=== PATIENT | male | born 1975 | race Caucasian/White ===

== ENCOUNTER → 2019-02-22 15:12 | Outpatient (CLI) | payer MEDICAID, SELFPAY ==
[2019-02-22 17:36] LABS: Absolute Lymphocyte Count 1.66 X10^3/ul (0.83-4.51); Absolute Neutrophil Count 4.2 X10^3/uL (2.0-7.7); Basophil# 0.02 X10^3/uL; Basophil% 0.3 % (0-1); Eosinophil# 0.19 X10^3/uL; Eosinophils% 2.9 % (0-5); Hematocrit 44.1 % (40-54); Hemoglobin 14.5 g/dl (13.0-16.5); Lymphocyte # 1.66 X10^3/ul (4.0); Lymphocyte % 25.5 % (19-41); Mean Corp Hgb Conc 32.9 g/gl (32-36); Mean Corpuscular Hgb 27.3 pg (27.0-32.0); Mean Corpuscular Volume 82.9 fL (80-94); Mean Platelet Vol. 9.5 fl (6.2-12.0); Monocyte# 0.45 X10^3/uL; Monocyte% 6.9 % (0-10); Neutrophil # 4.19 X10^3/uL (2.7-7.7); Neutrophil % 64.2 % (47-70); Platelet Count 238 K/mm3 (150-450); RBC Distribution Width CV 13.7 % (11.6-14.6); RBC Distribution Width SD 41.1 fl (35.1-43.9); Red Blood Count 5.32 M/mm3 (4.6-6.2); White Blood Count 6.5 K/mm3 (4.4-11.0)
[2019-02-22 17:54] LABS: ALB/GLOB Ratio 1.1 RATIO (0.9-2.4); AST(SGOT) 22 U/L (15-37); Alanine Aminotransfer ALT/SGPT 39 U/L (16-61); Albumin, Serum 3.8 g/dL (3.2-5.0); Alkaline Phosphatase 207 U/L (45-117); Anion Gap 6 (5-15); BUN 16 mg/dL (7-18); BUN/Creat Ratio 14.8 RATIO (10-20); Calcium,Total 8.8 mg/dL (8.5-10.1); Chloride 102 mmol/L (98-107); Cholesterol 208 mg/dL (200); Creatinine, Serum 1.08 mg/dL (0.70-1.30); EST Glomerular Filtration Rate 79 mL/min (>60); Est Glom Filt Rate - Afr Amer 96 mL/min (>60); Globulin 3.5 g/dL (2.2-4.2); Glucose 85 mg/dL (74-106); High Density Lipoprotein 43 mg/dL; Potassium 4.7 mmol/L (3.5-5.1); Protein, Total 7.3 g/dL (6.4-8.2); Sodium Level 137 mmol/L (136-145)
[2019-02-22 17:58] LABS: POSITIVE COUNT NO; POSITIVE DIFFERENTIAL NO; POSITIVE MORPHOLOGY NO
[2019-02-22 18:21] LABS: Microalbumin,Random Urine 5.9 mg/L (NO RANGE EST.); Microalbumin:Creatinine Ratio 4.6 mg/g CRE (<30 mg/g CRE)
== END ==
PROVIDERS: Family Provider Family Medicine; PCP Family Medicine; Referring Provider Family Medicine; Visit Provider Family Medicine
DX: I10 Essential (primary) hypertension (principal); G47.30 Sleep apnea, unspecified
CPT/HCPCS: 36415; 80053; 82043; 82465; 82570; 83718; 85025

== ENCOUNTER → 2019-03-16 14:04 | Outpatient (CLI) | payer MEDICAID, SELFPAY ==
[2019-03-16 15:39] LABS: Vitamin D,25 Hydroxy 25.3 ng/mL (29.95-100.01)
[2019-03-16 15:40] LABS: PTHIN 75.4 pg/mL (18.4-80.1)
== END ==
PROVIDERS: Family Provider Family Medicine; PCP Family Medicine; Visit Provider Family Medicine
DX: E83.39 Other disorders of phosphorus metabolism (principal)
CPT/HCPCS: 36415; 82306; 83970

== ENCOUNTER → 2020-08-11 08:51 | Outpatient (CLI) | payer MEDICAID, SELFPAY ==
[2020-08-11 10:34] LABS: Hemoglobin A1c 5.4 % (3.8-5.6)
[2020-08-11 10:43] LABS: Microalbumin,Random Urine 6.5 mg/L (NO RANGE EST.); Microalbumin:Creatinine Ratio 4.1 mg/g CRE (<30 mg/g CRE)
[2020-08-11 10:46] LABS: ALB/GLOB Ratio 0.9 RATIO (0.9-2.4); AST(SGOT) 28 U/L (15-37); Alanine Aminotransfer ALT/SGPT 64 U/L (16-61); Albumin, Serum 3.7 g/dL (3.2-5.0); Alkaline Phosphatase 244 U/L (45-117); Anion Gap 5 (5-15); BUN 16 mg/dL (7-18); BUN/Creat Ratio 15.4 RATIO (10-20); Calcium,Total 9.2 mg/dL (8.5-10.1); Chloride 105 mmol/L (98-107); Creatinine, Serum 1.04 mg/dL (0.70-1.30); EST Glomerular Filtration Rate 82 mL/min (>60); Est Glom Filt Rate - Afr Amer 99 mL/min (>60); Globulin 4.2 g/dL (2.2-4.2); Glucose 111 mg/dL (74-106); Potassium 4.5 mmol/L (3.5-5.1); Protein, Total 7.9 g/dL (6.4-8.2); Sodium Level 137 mmol/L (136-145); Thyroid Stim Hormone (TSH) 1.93 uIU/mL (0.358-3.74)
[2020-08-14 09:11] LABS: GGTP 186 U/L (15-85)
[2020-08-14 12:58] LABS: ANTINUCLEAR ANTIBODIES DIRECT Negative (Negative)
== END ==
PROVIDERS: PCP Family Medicine; Referring Provider Family Medicine; Visit Provider Family Medicine
DX: M79.10 Myalgia, unspecified site (principal); I10 Essential (primary) hypertension
CPT/HCPCS: 36415; 80053; 82043; 82570; 82977; 83036; 84443; 86038; 86140

== ENCOUNTER → 2020-11-23 08:33 | Outpatient (CLI) | payer MEDICAID, SELFPAY ==
--- NOTE | 2020-11-23 08:40 | RAD_ITS ---
STUDY: X-RAY - LEFT KNEE REASON FOR EXAM: Male, 45 years old. INFLAMMATORY POLYARTHROPATHY TECHNIQUE: 4 view(s) of the knee. COMPARISON: None. FINDINGS: Normal visualized distal femur. Normal visualized proximal tibia and fibula. Normal proximal tibiofibular articulation. There is moderate degenerative arthrosis of the medial femorotibial compartment with moderate joint space narrowing. There is moderate degenerative arthrosis of the lateral femorotibial compartment with moderate joint space narrowing. There is moderate degenerative arthrosis of the patellofemoral articulation. The soft tissue structures are unremarkable. RAD/Knee 4 or More Views IMPRESSION: Degenerative arthrosis. Electronically Signed: Jarett Castaneda MD at 15:21 EDT , Service support ,
--- NOTE | 2020-11-23 08:40 | RAD_ITS ---
STUDY: X-RAY - RIGHT KNEE REASON FOR EXAM: Male, 45 years old. INFLAMMATORY POLYARTHROPATHY TECHNIQUE: 4 view(s) of the knee. COMPARISON: None. FINDINGS: Normal visualized distal femur. Normal visualized proximal tibia and fibula. Normal proximal tibiofibular articulation. There is mild degenerative arthrosis of the medial femorotibial compartment. Normal lateral femorotibial compartment. There is mild degenerative arthrosis of the patellofemoral articulation. The soft tissue structures are unremarkable. RAD/Knee 4 or More Views IMPRESSION: Degenerative arthrosis. The arthritic changes are more progressed in the left knee than the right Electronically Signed: Jarett Castaneda MD at 15:22 EDT , Service support ,
[2020-11-23 08:51] LABS: Lyme Ab Screen Interpretation REF LAB
[2020-11-23 10:21] LABS: Erythrocyte Sedimentation Rate 23 mm/hr (0-20)
[2020-11-23 10:23] LABS: Absolute Lymphocyte Count 1.45 X10^3/uL (0.83-4.51); Absolute Neutrophil Count 3.7 X10^3/uL (2.0-7.7); Basophil# 0.03 X10^3/uL; Basophil% 0.5 % (0-1); Eosinophil# 0.19 X10^3/uL; Eosinophils% 3.3 % (0-5); Hematocrit 44.6 % (40-54); Hemoglobin 14.1 g/dL (13.0-16.5); Lymphocyte # 1.45 X10^3/ul (4.0); Lymphocyte % 25.3 % (19-41); Mean Corp Hgb Conc 31.6 g/dL (32-36); Mean Corpuscular Hgb 27.4 pg (27.0-32.0); Mean Corpuscular Volume 86.8 fL (80-94); Mean Platelet Vol. 9.1 fl (6.2-12.0); Monocyte# 0.32 X10^3/uL; Monocyte% 5.6 % (0-10); NRBC Flagged by Analyzer 0 % (0-5); Neutrophil # 3.72 X10^3/uL (2.7-7.7); Platelet Count 238 K/mm3 (150-450); RBC Distribution Width CV 13.6 % (11.6-14.6); RBC Distribution Width SD 43.4 fl (35.1-43.9); Red Blood Count 5.14 M/mm3 (4.6-6.2); White Blood Count 5.7 K/mm3 (4.4-11.0)
[2020-11-23 11:15] LABS: CRP 7.16 mg/L (0.0-3.0); Rheumatoid Factor < 10.0 IU/mL (<15); T4 Free Direct 0.87 ng/dL (0.76-1.46); Thyroid Stim Hormone (TSH) 2.25 uIU/mL (0.358-3.74)
[2020-11-24 15:43] LABS: ANTINUCLEAR ANTIBODIES DIRECT Negative (Negative)
[2020-11-24 17:07] LABS: Lyme Scn Total Ab w/Rflx <0.91 ISR (0.00-0.90)
== END ==
PROVIDERS: PCP Family Medicine; Referring Provider Family Medicine; Visit Provider Family Medicine
DX: M06.4 Inflammatory polyarthropathy (principal)
CPT/HCPCS: 36415; 73564; 84439; 84443; 85025; 85652; 86038; 86140; 86431; 86618

== ENCOUNTER → 2021-01-15 11:16 | Outpatient (CLI) | payer MEDICAID, SELFPAY ==
[2021-01-15 12:28] LABS: Erythrocyte Sedimentation Rate 40 mm/hr (0-20)
[2021-01-15 12:30] LABS: Absolute Lymphocyte Count 1.17 X10^3/uL (0.83-4.51); Absolute Neutrophil Count 3.6 X10^3/uL (2.0-7.7); Basophil# 0.03 X10^3/uL; Basophil% 0.6 % (0-1); Eosinophil# 0.15 X10^3/uL; Eosinophils% 2.8 % (0-5); Hematocrit 45.1 % (40-54); Hemoglobin 14.6 g/dL (13.0-16.5); Lymphocyte # 1.17 X10^3/ul (0.83-4.51); Lymphocyte % 21.7 % (19-41); Mean Corp Hgb Conc 32.4 g/dL (32-36); Mean Corpuscular Hgb 27.9 pg (27.0-32.0); Mean Corpuscular Volume 86.2 fL (80-94); Mean Platelet Vol. 8.9 fl (6.2-12.0); Monocyte# 0.45 X10^3/uL; Monocyte% 8.4 % (0-10); NRBC Flagged by Analyzer 0 % (0-5); Neutrophil # 3.56 X10^3/uL (2.7-7.7); Neutrophil % 66.1 % (47-70); Platelet Count 226 K/mm3 (150-450); RBC Distribution Width CV 13.5 % (11.6-14.6); RBC Distribution Width SD 42.5 fl (35.1-43.9); Red Blood Count 5.23 M/mm3 (4.6-6.2); White Blood Count 5.4 K/mm3 (4.4-11.0)
== END ==
PROVIDERS: Family Medicine; PCP Family Medicine; Referring Provider Family Medicine; Visit Provider Family Medicine
DX: M06.4 Inflammatory polyarthropathy (principal)
CPT/HCPCS: 36415; 85025; 85652; 86141

== ENCOUNTER 2021-01-31 18:30 | Outpatient (RCR) | payer MEDICAID, SELFPAY ==
--- NOTE | 2021-01-22 16:43 | HP.PTEVAL_ITS ---
Patient's Visit Information DERIK BOLIVAR is a 45 year old M referred to Physical Therapy by Dr. Ashanti Lozada MD with a diagnosis of Left Knee Pain. Date of Evaluation: 01/22/21 Physical Therapist: Maricel Payton DPT - Visit Plan Frequency: 2x /Week Duration: 4 Weeks Plan: OA of the Left Knee- Focus on LE and core strength/stabilization- US as modality of choice. HEP Given IE: SLR, hamstring stretch, Bridge, SLS - Subjective Patient reports that his left knee has been bothering him since August- Insidious onset. In 2007 he fell out of a truck- when he fell out he hyper extended both knees- Left>Right. 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 So it has been worse since he started. The pain is in the front and radiates to both medial and lateral joint line. Does have radiating pain into the hamstring area. He does have N/T in the foot depending on his positioning. This is not new for him. Describes the pain as dull and achy as well as sharp/shooting. Agg: climbing, standing on it to long, twisting Worst: 10/10 Best: 0/10 Eases: rest Sleep: not disturbed. The knee has been better for the last few months but still bothers him. Back problems- stiffness- goes to see [facility] who does adjustments- massage therapy. PMHx: none Meds: GERD medication PRN - Objective Posture: FH, RS- can correct but is unable to maintain. Gait: toes turned out to the side- good brenton. HR/TR: able with UE A. SLS: 3 sec then LOB and required to put other LE on the ground. Sit to Stand: able without UE A. Stairs: asc with no HR- descent no HR recip with poor eccentric control. ROM: 0-120 degrees with soft tissue limitation. Strength: Ankle: 5/5 Knee: 5/5, Hip: flexion: 4+/5, Abd: 4+/5 IR/ER: 4-/5, Extn: 4/5. Core: fair. Flex: HS: severe, Gastroc: severe - Goals Goal 1:: Patient will be I with HEP and progression Goal Time Frame: 4-6 Weeks Goal 2:: Patient will asc/desc 8 stairs recip with good control and no pain Goal Time Frame: 4-6 Weeks Goal 3:: Patient will maintain proper posture t/o tx session to demo increased core s/s. Goal Time Frame: 4-6 Weeks Goal 4:: Patient will report no pain for 1 week Goal Time Frame: 4-6 Weeks - Rehabilitation Potential Physical Therapy Diagnosis: Patient presents with hypomobility- he has decreased strength, flex and muscular endurance leading to increased pain with ADL's and work related tasks. Rehabilitation Potential: Fair - Anticipated Interventions Patient/Client Instruction: Educate patient on: Benefits of Fitness Program Thank you for the opportunity to evaluate your patient. For Medicare and Medicare HMO plans, please review the plan of care and approve it. It will need to be FAXED BACK to us at [phone] for Medicare purposes. For Medicare only, by signing this I certify the plan of care. Please let me know if there are questions or concerns regarding this plan of care. Physician Signature: Date:
--- NOTE | 2021-07-09 07:13 | HP.PT.NRP ---
DERIK ALFORDYAMILKA was seen in my office for initial evaluation on 01/22/21. The following Plan of Care was established for this patient: Initial Frequency: 2x /Week Initial Duration: 4 Weeks Patient/Client Instruction: Educate patient on: Benefits of Fitness Program This patient was last seen in our office . Pertinent comments regarding their Physical therapy will appear below: Patient has not attended PT in over 4 weeks and is appropriate for discharge- return to MD for further evaluation as needed. At this point I will be discontinuing this patient from physical therapy. I would be happy to see this patient again in the future if found appropriate by the physician. Thank you! Maricel Payotn DPT Balance/Gait/Functional tests - Balance/Special Test Scores Lower Extremity Functional Score: 24
== END 2021-01-31 19:00 | disposition home or self-care (01) ==
LOC: PT 18:30
PROVIDERS: PCP Family Medicine; Referring Provider Family Medicine; Visit Provider Family Medicine
DX: M25.562 Pain in left knee (principal)
CPT/HCPCS: 97035; 97110; 97161

== ENCOUNTER → 2021-06-05 16:56 | Outpatient (CLI) | payer MEDICAID, SELFPAY ==
[2021-06-05 17:38] LABS: Absolute Lymphocyte Count 1.69 X10^3/uL (0.83-4.51); Absolute Neutrophil Count 5.1 X10^3/uL (2.0-7.7); Basophil# 0.02 X10^3/uL; Basophil% 0.3 % (0-1); Eosinophil# 0.25 X10^3/uL; Eosinophils% 3.3 % (0-5); Hematocrit 43.7 % (40-54); Hemoglobin 14.1 g/dL (13.0-16.5); Lymphocyte # 1.69 X10^3/ul (0.83-4.51); Lymphocyte % 22.4 % (19-41); Mean Corp Hgb Conc 32.3 g/dL (32-36); Mean Corpuscular Hgb 27.8 pg (27.0-32.0); Monocyte# 0.44 X10^3/uL; Monocyte% 5.8 % (0-10); NRBC Flagged by Analyzer 0 % (0-5); Neutrophil # 5.13 X10^3/uL (2.7-7.7); Neutrophil % 67.9 % (47-70); Platelet Count 223 K/mm3 (150-450); RBC Distribution Width CV 13.1 % (11.6-14.6); RBC Distribution Width SD 40.7 fl (35.1-43.9); Red Blood Count 5.08 M/mm3 (4.6-6.2); White Blood Count 7.6 K/mm3 (4.4-11.0)
[2021-06-05 17:54] LABS: Hemoglobin A1c 5.4 % (3.8-5.6)
[2021-06-05 18:05] LABS: ALB/GLOB Ratio 0.9 RATIO (0.9-2.4); AST(SGOT) 26 U/L (15-37); Alanine Aminotransfer ALT/SGPT 69 U/L (16-61); Albumin, Serum 3.5 g/dL (3.2-5.0); Alkaline Phosphatase 222 U/L (45-117); Anion Gap 8 (5-15); BUN 19 mg/dL (7-18); BUN/Creat Ratio 19.3 RATIO (10-20); Calcium,Total 8.8 mg/dL (8.5-10.1); Chloride 102 mmol/L (98-107); Creatinine, Serum 0.98 mg/dL (0.70-1.30); EST Glomerular Filtration Rate 87 mL/min (>60); Est Glom Filt Rate - Afr Amer 106 mL/min (>60); Ferritin 27 ng/mL (26-388); Globulin 4.1 g/dL (2.2-4.2); Glucose 90 mg/dL (74-106); Potassium 4.5 mmol/L (3.5-5.1); Protein, Total 7.6 g/dL (6.4-8.2); Sodium Level 138 mmol/L (136-145); Thyroid Stim Hormone (TSH) 2.05 uIU/mL (0.358-3.74)
[2021-06-13 00:07] LABS: Lyme IgG P18 Ab Absent (.); Lyme IgG P23 Ab Absent (.); Lyme IgG P28 Ab Absent (.); Lyme IgG P30 Ab Absent (.); Lyme IgG P39 Ab Absent (.); Lyme IgG P41 Ab Absent (.); Lyme IgG P45 Ab Absent (.); Lyme IgG P58 Ab Absent (.); Lyme IgG P66 Ab Absent (.); Lyme IgG P93 Ab Absent (.); Lyme IgM P23 Ab Absent (.); Lyme IgM P39 Ab Absent (.); Lyme IgM P41 Ab Absent (.)
[2021-06-13 14:28] LABS: CCP IgG Antibodies 7 units (0-19); Lyme IgG WB Interpretation Negative (.); Lyme IgM WB Interpretation Negative (.)
== END ==
PROVIDERS: PCP Family Medicine; Referring Provider Family Medicine; Visit Provider Family Medicine
DX: M30.0 Polyarteritis nodosa (principal); E66.01 Morbid (severe) obesity due to excess calories; R19.7 Diarrhea, unspecified; Z68.43 Body mass index [BMI] 50.0-59.9, adult
CPT/HCPCS: 36415; 80053; 82728; 83036; 84443; 85025; 86200; 86617

== ENCOUNTER → 2021-06-06 06:13 | Outpatient (CLI) | payer MEDICAID, SELFPAY ==
[2021-06-08 13:38] LABS: Calprotectin, Stool 21 ug/g (0-120)
== END ==
PROVIDERS: PCP Family Medicine; Referring Provider Family Medicine; Visit Provider Family Medicine
DX: R19.7 Diarrhea, unspecified (principal); M30.0 Polyarteritis nodosa; E66.01 Morbid (severe) obesity due to excess calories; Z68.43 Body mass index [BMI] 50.0-59.9, adult
CPT/HCPCS: 83630; 83993; 87506

== ENCOUNTER → 2021-06-28 14:56 | Outpatient (CLI) | payer MEDICAID, SELFPAY ==
--- NOTE | 2021-06-28 14:58 | US_ITS ---
STUDY: ABDOMINAL ULTRASOUND - RIGHT UPPER QUADRANT REASON FOR VISIT: Male, 45 years old Hepatitis TECHNIQUE: Ultrasound evaluation of the right upper quadrant was performed with real-time and static maynard-scale imaging. TECHNICAL QUALITY: Adequate. COMPARISON: None. FINDINGS: Liver: The liver is enlarged and measures 21.8 cm. There is increased echogenicity consistent with fatty infiltration. The bile ducts are within normal limits. There is hepatic color flow. The direction of portal flow is hepatopetal. There is no demonstrated mass lesion. Gallbladder: Normal distended gallbladder. The gallbladder wall measures 3 mm. There is a negative sonographic Urbina''s sign. There is no pericholecystic fluid. There are no gallstones. Common Bile Duct (C.B.D.): The common bile duct measures 2 mm. Pancreas: Normal size of the head, body of the pancreas. The tail portion is obscured due to overlying bowel gas. There is normal echogenicity of the pancreas. There is no demonstrated pancreatic mass or cyst. Right Kidney: Normal size of the right kidney. The right kidney measures 11.1 cm x 5.6 cm x 4.1 cm. Normal renal cortex. The right cortex measures 1.1 cm. There is no demonstrated renal mass or cyst. There is no right hydronephrosis. US/Abdomen Limited IMPRESSION: Hepatomegaly. Diffuse fatty infiltration of the liver. Electronically Signed: Christopher Montiel MD at 9:35 EDT , Service support ,
== END ==
PROVIDERS: PCP Family Medicine; Referring Provider Internal Medicine Gastroenterology; Visit Provider Internal Medicine Gastroenterology
DX: K75.9 Inflammatory liver disease, unspecified (principal)
CPT/HCPCS: 76705

== ENCOUNTER 2021-07-03 11:29 | Day surgery (SDC) | payer MEDICAID, SELFPAY ==
[2021-07-02 13:46] LABS: Platelet Count 230 K/mm3 (150-450)
[2021-07-02 14:09] LABS: International Normalized Ratio 1.1; Prothrombin Time (Protime)PT. 13.8 SECONDS (11.7-14.9)
[2021-07-02 14:10] LABS: Partial Thromboplast Time 29.7 Seconds (24.1-36.2)
[2021-07-03 11:52] VITALS: BP 137/88; PULSE 83; RESP 18; TEMP 36.1; O2SAT 100; BMI 50.7
[2021-07-03] MEDS: Lactated Ringers 1,000 ML 100 ML IV (12:03)
--- NOTE | 2021-07-03 12:30 | EGD_PTH ---
PATIENT: DERIK BOLIVAR LOC: [facility] U#:[id number] AGE/SX: 45/M ROOM: RE07/03/[address]: Dr. Felipe Hayes DO : 1975 BED: DIS: 07/03/2021 SPEC #: [id number] RECD: 07/03/21 16:02 STATUS: NIKKI BEBE #: [id number] EVER: 07/03/21 12:[address]: Felipe Hayes DEPT: SURGICAL PATHOLOGY RECD BY: Evelina Kamara ENTERED: 07/04/21 10:31 SP TYPE: EGD BIOPSY DONOVAN DR: Dr. Luther Lamas MD Tissues: A - Esophagus, NOS B - Ileum, NOS C - COLON BIOPSY D - Transverse colon E - Sigmoid colon biopsy Procedures: Special Stain Group II Surgery Specimen Level IV Alcian Blue/PAS (control) HEADER OPERATION: Colonoscopy, EGD ([facility] [place]) PRE-OP DIAGNOSIS: Hepatitis, lower GI bleeding, GERD TISSUE SUBMITTED: A ? Distal esophagus biopsy, B ? Terminal ileum biopsy, C ? Hepatic flexure biopsy, D ? Transverse colon polyp biopsy, E ? Sigmoid colon polyp MICROSCOPIC DIAGNOSIS A. Distal esophagus, biopsy: Gastroesophageal junctional mucosa with mild chronic inflammation. No evidence of goblet cell metaplasia. See comment. B. Terminal ileum, biopsy: No pathologic change. C. Colon at hepatic flexure, biopsy: Fragments of colonic mucosa with no pathologic change. D. Transverse colon polyp, biopsy: Tubular adenoma. E. Sigmoid colon polyp, biopsy: Fragments of tubular adenoma. AM:torsten 07/05/2021 COMMENT A. Alcian blue/PAS stain with matched control supports the above diagnosis. Case has been reviewed in consultation with Dr. Chacon who concurs with the above diagnosis. IDC:SJ MICROSCOPIC DESCRIPTION Slides are reviewed. GROSS DESCRIPTION A - Received in fixative is one container labeled with the patient's name and designated distal esophagus. The specimen consists of multiple irregular fragments of light carbajal soft tissue that in aggregate measure 1.2 x 0.4 x 0.1 cm. The specimen is totally submitted in one cassette. B - Received in fixative is one container labeled with the patient's name and designated terminal ileum biopsy. The specimen consists of two irregular fragments of light carbajal soft tissue that in aggregate measure 0.4 x 0.4 x 0.1 cm. The specimen is totally submitted in one cassette. C - Received in fixative is one container labeled with the patient's name and designated hepatic flexure biopsy. The specimen consists of one irregular fragment of light carbajal soft tissue that measures 0.4 x 0.3 x 0.1 cm. The specimen is totally submitted in one cassette. D - Received in fixative is one container labeled with the patient's name and designated transverse colon polyp biopsy. The specimen consists of one irregular fragment of light carbajal soft tissue that measures 0.3 x 0.3 x 0.1 cm. The specimen is totally submitted in one cassette. E - Received in fixative is one container labeled with the patient's name and designated sigmoid colon polyp. The specimen consists of a carbajal-pink polyp measuring 1 x 1 x 0.4 cm. The entire specimen is submitted in one cassette. / NENO:torsten 07/04/21 TC:5 CPT: 42364 x5, 57973
--- NOTE | 2021-07-03 12:54 | PCM.HP.BLA ---
History and Physical Date of Admission: 07/03/21 HPI HPI Details: DERIK BOLIVAR, is a 45 M who presents to the office today for the evaluation of bloody stool. He says he has been having bloody stools on and off for several years. Recently he has been having problems with muscle aches and weakness. He has no chest pain or shortness of breath. He has no family history or personal history of any rheumatologic disease. He has no family history of any muscle disease. He had a biochemical work-up by his primary that had shown an elevated ESR and CRP. Also he had an elevated alkaline phosphatase and ALT. He has no previous history of liver disease and does not drink any alcohol. He has never had any blood transfusions. He denies any right upper quadrant pain, nausea or indigestion. He does have a history of gastroesophageal reflux disease that requires him to take omeprazole on occasion. He is never been hospitalized except for a ventral hernia repair. He still has his gallbladder. 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 Denies constipation or diarrhea, but he has had bloody stools; most recently this week. He has been having bloody stools for the last 3 years years and he goes through periods where he has them regularly and other periods where he has none. Previously has been told they were related to hemorrhoids and sitting too much. He does have a family history of Crohn's Disease. Denies history of colonoscopy or EGD. ROS Const Constitutional: Positive for headache(s) Eyes Eyes: Positive for blurry vision ENT ENT: Positive for headache(s) Gastro GI: Positive for heartburn and Blood in stool Musc Musculoskeletal: Positive for joint pain, back pain, joint swelling, muscle cramps, muscle weakness and stiffness Neuro Neurology: Positive for headache(s) Exam Const General: cooperative and comfortable Nutritional Appearance: average body habitus and well nourished [facility] Head: normal to inspection Ears: hearing grossly normal bilaterally Nose: external nose normal Face and sinus: normal facial exam Mouth: oral mucosae normal Throat: posterior oropharynx normal Eyes General: appearance normal, both eyes and all related structures Neck Neck: normal visual inspection Chest Chest palpation & inspection: normal inspection of the chest and normal palpation of entire chest wall Resp Effort & Inspection: normal respiratory effort Auscultation: Bilateral: Clear to Auscultation Cardio Palpation: normal PMI Rate: regular rate Rhythm: regular rhythm GI Inspection: normal to inspection Auscultation: normal bowel sounds Percussion: normal to percussion Palpation: no hepatosplenomegaly Skin General: no rashes or lesions noted Neuro General: patient alert Extrem General: normal to inspection Psych Affect: normal affect Assessment and Plan Assessment and Plan (1) Hepatitis: Status: Acute Orders: Orders: Abdomen Complete Today Anti-Mitochondrial AB Today BEATA w/ Reflex Mult Confirm Today Hepatitis Panel Acute Today Anti-Smooth Muscle ABS Today Plan - Dr. Wang Friend, DO: The differential diagnosis for cholestatic hepatitis would be medication induced injury, primary bili cirrhosis or primary sclerosing cholangitis. Also need for diagnosis would include hepatobiliary disease such as cholelithiasis. We will get a biochemical work-up for autoimmune diseases that affect the liver and viral hepatitis along with a ultrasound of the right upper quadrant. (2) Lower GI bleeding: Status: Acute Plan - Dr. Wang Friend, DO: He will undergo colonoscopy for evaluation of his lower GI tract for lower GI bleeding. The differential diagnosis does include ulcerative proctitis, left-sided colitis, hemorrhoidal disease, stercoral ulcer. (3) GERD (gastroesophageal reflux disease): Status: Acute Plan - Dr. Wang Friend, DO: Because of his history of gastroesophageal reflux disease and obesity. He should get a upper endoscopy to get screen for Kilgore's esophagus since he is having a colonoscopy. I will have him continue his omeprazole for now. And we will reassess the need for PPI or H2 receptor frank after endoscopy.
[2021-07-03] MEDS: Lidocaine 2% Jelly 1 APPLIC Tube (13:49)
--- NOTE | 2021-07-03 13:55 | OP.EGD_ITS ---
Patient Name: Max Eckert Procedure Date: 07/03/2021 12:52 PM Date of : 1975 Age: 45 Procedure: Upper GI endoscopy Indications: Heartburn Providers: Felipe Hayes DO Referring MD: Felipe Hayes DO Patient Profile: This is a 45 year old male. Refer to note in patient chart for documentation of history and physical. Patient has symptoms of chronic heartburn. The symptoms first began 2018. Body Mass Index: 50. Complications: No immediate complications. Procedure: Pre-Anesthesia Assessment: - Prior to the procedure, a History and Physical was performed, and patient medications and allergies were reviewed. The patient is competent. The risks and benefits of the procedure and the sedation options and risks were discussed with the patient. All questions were answered and informed consent was obtained. Patient identification and proposed procedure were verified by the physician in the pre-procedure area. Mental Status Examination: alert and oriented. Airway Examination: normal oropharyngeal airway and neck mobility. Respiratory Examination: clear to auscultation. CV Examination: normal. Prophylactic Antibiotics: The patient does not require prophylactic antibiotics. Prior Anticoagulants: The patient has taken no previous anticoagulant or antiplatelet agents. ASA Grade Assessment: II - A patient with mild systemic disease. After reviewing the risks and benefits, the patient was deemed in satisfactory condition to undergo the procedure. The anesthesia plan was to use moderate sedation / analgesia (conscious sedation). Immediately prior to administration of medications, the patient was re-assessed for adequacy to receive sedatives. The heart rate, respiratory rate, oxygen saturations, blood pressure, adequacy of pulmonary ventilation, and response to care were monitored throughout the procedure. The physical status of the patient was re-assessed after the procedure. After obtaining informed consent, the endoscope was passed under direct vision. Throughout the procedure, the patient's blood pressure, pulse, and oxygen saturations were monitored continuously. The Endoscope was introduced through the mouth, and advanced to the second part of duodenum. The upper GI endoscopy was accomplished without difficulty. The patient tolerated the procedure well. Moderate Sedation: Moderate (conscious) sedation was administered by the endoscopy nurse and supervised by the endoscopist. The following parameters were monitored: oxygen saturation, heart rate, blood pressure, and response to care. Total physician intraservice time was 15 minutes. Scope In: 1:05:21 PM Scope Out: 1:09:15 PM Total Procedure Duration Time 0 hours 3 minutes 54 seconds Findings: LA Grade B (one or more mucosal breaks greater than 5 mm, not extending between the tops of two mucosal folds) esophagitis with no bleeding was found 34 to 35 cm from the incisors. Biopsies were taken with a cold forceps for histology. Verification of patient identification for the specimen was done by the physician. Estimated blood loss was minimal. The entire examined stomach was normal. The exam of the duodenum was otherwise normal. Impression: - LA Grade B reflux and reflux esophagitis. Rule out Kilgore's esophagus. Biopsied. - Normal stomach. Recommendation: - Discharge patient to home. - Resume previous diet. - Continue present medications. - Await pathology results. - Repeat upper endoscopy in 1 year for surveillance. - Return to GI office in 2 weeks. Procedure Code(s): --- Professional --- 96034, Esophagogastroduodenoscopy, flexible, transoral; with biopsy, single or multiple G0500, Moderate sedation services provided by the same physician or other qualified health direct care supervisor performing a gastrointestinal endoscopic service that sedation supports, requiring the presence of an independent trained observer to assist in the monitoring of the patient's level of consciousness and physiological status; initial 15 minutes of intra-service time; patient age 5 years or older (additional time may be reported with 44714, as appropriate) Diagnosis Code(s): --- Professional --- K21.0, Gastro-esophageal reflux disease with esophagitis CPT copyright 2017 [employer]. All rights reserved. The codes documented in this report are preliminary and upon butcher helper review may be revised to meet current compliance requirements. Felipe Hayes DO 07/03/2021 1:54:25 PM This report has been signed electronically. Number of Addenda: 1 Note Initiated On: 07/03/2021 12:52 PM Addendum Number: 1 Addendum Date: 05/09/2022 4:49:12 PM MAC was used instead of moderate sedation for this patient. Felipe Hayes DO 05/09/2022 4:49:17 PM This report has been signed electronically.
--- NOTE | 2021-07-03 13:55 | OP.CCLET_ITS ---
05/09/2022 Luther Lamas [address] [place] [address] Re : [facility] This procedure was performed on Saturday, July 03, 2021. My impressions and recommendations are as follows: Impressions : - LA Grade B reflux and reflux esophagitis. Rule out Kilgore's esophagus. Biopsied. - Normal stomach. Recommendations : - Discharge patient to home. - Resume previous diet. - Continue present medications. - Await pathology results. - Repeat upper endoscopy in 1 year for surveillance. - Return to GI office in 2 weeks. My findings are described in the full procedure note, which is enclosed. If I can be of further assistance, please feel free to contact me at . Sincerely, Felipe Hayes, 07/03/2021 1:54:25 PM This report has been signed electronically.
[2021-07-03 14:00] VITALS: BP 115/61; BP 137/88; PULSE 88; RESP 18; TEMP 35.9; O2SAT 96
--- NOTE | 2021-07-03 14:02 | OP.COLON_ITS ---
Patient Name: Max Eckert Procedure Date: 07/03/2021 1:12 PM Date of : 1975 Age: 45 Procedure: Colonoscopy Indications: Screening for colorectal malignant neoplasm Providers: Felipe Hayes DO Referring MD: Felipe Hayes DO Medicines: Propofol per Anesthesia Patient Profile: This is a 45 year old male. Refer to note in patient chart for documentation of history and physical. Patient has symptoms of chronic heartburn. The symptoms first began 2018. Body Mass Index: 50. Last Colonoscopy: none. The patient's first colonoscopy is today. Complications: No immediate complications. Procedure: Pre-Anesthesia Assessment: - Prior to the procedure, a History and Physical was performed, and patient medications and allergies were reviewed. The patient is competent. The risks and benefits of the procedure and the sedation options and risks were discussed with the patient. All questions were answered and informed consent was obtained. Patient identification and proposed procedure were verified by the physician in the pre-procedure area. Mental Status Examination: alert and oriented. Airway Examination: normal oropharyngeal airway and neck mobility. Respiratory Examination: clear to auscultation. CV Examination: normal. Prophylactic Antibiotics: The patient does not require prophylactic antibiotics. Prior Anticoagulants: The patient has taken no previous anticoagulant or antiplatelet agents. ASA Grade Assessment: II - A patient with mild systemic disease. After reviewing the risks and benefits, the patient was deemed in satisfactory condition to undergo the procedure. The anesthesia plan was to use moderate sedation / analgesia (conscious sedation). Immediately prior to administration of medications, the patient was re-assessed for adequacy to receive sedatives. The heart rate, respiratory rate, oxygen saturations, blood pressure, adequacy of pulmonary ventilation, and response to care were monitored throughout the procedure. The physical status of the patient was re-assessed after the procedure. After I obtained informed consent, the scope was passed under direct vision. Throughout the procedure, the patient's blood pressure, pulse, and oxygen saturations were monitored continuously. The Colonoscope was introduced through the anus and advanced to the terminal ileum. The colonoscopy was performed without difficulty. The patient tolerated the procedure well. The quality of the bowel preparation was good. Moderate Sedation: Moderate (conscious) sedation was personally administered by an anesthesia professional. The following parameters were monitored: oxygen saturation, heart rate, blood pressure, and response to care. Total physician intraservice time was 15 minutes. Scope In: 1:14:53 PM Scope Withdrawal Time 0 hours 32 minutes 27 seconds Scope Out: 1:51:11 PM Total Procedure Duration Time 0 hours 36 minutes 18 seconds Findings: Hemorrhoids were found on perianal exam. Two sessile polyps were found in the sigmoid colon and splenic flexure. The polyps were 1 to 2 mm in size. These polyps were removed with a hot snare. Resection and retrieval were complete. Verification of patient identification for the specimen was done. Estimated blood loss was minimal. There was a large lipoma, 20 mm in diameter, in the descending colon. A few small-mouthed diverticula were found in the sigmoid colon. Bleeding external and internal hemorrhoids were found during retroflexion. The hemorrhoids were large and Grade III (internal hemorrhoids that prolapse but require manual reduction). A hemorrhoid was isolated with endoscopy. The MARY KATE ligator was positioned over the hemorrhoid at the left lateral position. Suction was applied and one rubber band was placed over the hemorrhoid. This was checked to make certain that the muscularis was free of the band. Post-banding digital rectal exam showed band in good position. There were no complications. A localized area of mucosa in the terminal ileum was mildly granular and inflamed. Biopsies were taken with a cold forceps for histology. Verification of patient identification for the specimen was done. Lavage of the area was performed, resulting in clearance with excellent visualization. Estimated blood loss was minimal. Impression: - Hemorrhoids found on perianal exam. - Two 1 to 2 mm polyps in the sigmoid colon and at the splenic flexure, removed with a hot snare. Resected and retrieved. - Large lipoma in the descending colon. - Diverticulosis in the sigmoid colon. - Bleeding external and internal hemorrhoids. Banded. - Granular and inflamed mucosa in the terminal ileum. Biopsied. Recommendation: - Repeat colonoscopy in 5 years for surveillance. - Return to GI office in 2 weeks. - Continue present medications. Procedure Code(s): --- Professional --- 18772, Colonoscopy, flexible; with removal of tumor(s), polyp(s), or other lesion(s) by snare technique 95501, Colonoscopy, flexible; with band ligation(s) (eg, hemorrhoids) 40961, 59, Colonoscopy, flexible; with biopsy, single or multiple Diagnosis Code(s): --- Professional --- Z12.11, Encounter for screening for malignant neoplasm of colon K64.2, Third degree hemorrhoids D12.5, Benign neoplasm of sigmoid colon D12.3, Benign neoplasm of transverse colon (hepatic flexure or splenic flexure) D17.5, Benign lipomatous neoplasm of intra-abdominal organs K63.89, Other specified diseases of intestine K52.9, Noninfective gastroenteritis and colitis, unspecified K57.30, Diverticulosis of large intestine without perforation or abscess without bleeding CPT copyright 2017 [employer]. All rights reserved. The codes documented in this report are preliminary and upon lead c developer review may be revised to meet current compliance requirements. Felipe Hayes DO 07/03/2021 2:02:13 PM This report has been signed electronically. Number of Addenda: 1 Note Initiated On: 07/03/2021 1:12 PM Addendum Number: 1 Addendum Date: 05/09/2022 4:49:29 PM MAC was used instead of moderate sedation for this patient. Felipe Hayes DO 05/09/2022 4:49:36 PM This report has been signed electronically.
--- NOTE | 2021-07-03 14:02 | OP.CCLET_ITS ---
05/09/2022 Luther Lamas [address] [facility] [address] [place] [address] Re : Colonoscopy procedure for Max Eckert Dear Dr. Lamas This procedure was performed on Saturday, July 03, 2021. My impressions and recommendations are as follows: Impressions : - Hemorrhoids found on perianal exam. - Two 1 to 2 mm polyps in the sigmoid colon and at the splenic flexure, removed with a hot snare. Resected and retrieved. - Large lipoma in the descending colon. - Diverticulosis in the sigmoid colon. - Bleeding external and internal hemorrhoids. Banded. - Granular and inflamed mucosa in the terminal ileum. Biopsied. Recommendations : - Repeat colonoscopy in 5 years for surveillance. - Return to GI office in 2 weeks. - Continue present medications. My findings are described in the full procedure note, which is enclosed. If I can be of further assistance, please feel free to contact me at . Sincerely, Felipe Hayes, 07/03/2021 2:02:13 PM This report has been signed electronically.
[2021-07-03 14:05] VITALS: BP 116/70; BP 137/88; PULSE 88; RESP 16; O2SAT 96
[2021-07-03 14:10] VITALS: BP 111/97; BP 137/88; PULSE 85; RESP 16; O2SAT 97
[2021-07-03 14:15] VITALS: BP 135/93; BP 137/88; PULSE 89; RESP 16; TEMP 36.2; O2SAT 97
[2021-07-03 14:33] VITALS: BP 137/88
[2021-07-04 15:08] LABS: HEPATITIS B SURFACE AG Negative (Negative); Hepatitis A IgM Antibody Negative (Negative); Hepatitis B Core AB IgM Negative (Negative)
[2021-07-04 16:05] LABS: Anti-Smooth Muscle ABS 18 Units (0-19); Hep C Antibodies 0.1 s/co ratio (0.0-0.9)
[2021-07-04 16:06] LABS: ANTINUCLEAR ANTIBODIES DIRECT Negative (Negative); Anti-Mitochondrial AB <20.0 Units (0.0-20.0)
== END 2021-07-03 14:46 | disposition home or self-care (01) ==
LOC: EN 11:30 → AC 11:31
PROVIDERS: PCP Family Medicine; Referring Provider Internal Medicine Gastroenterology; Visit Provider Internal Medicine Gastroenterology
PROC: 0DJD8ZZ Inspection of Lower Intestinal Tract, Via Natural or Artificial Opening Endoscopic (ICD-10-PCS; CPT 45378; principal; 2021-07-03 12:25)
DX: Z12.11 Encounter for screening for malignant neoplasm of colon (principal); K64.2 Third degree hemorrhoids; D12.3 Benign neoplasm of transverse colon; D12.5 Benign neoplasm of sigmoid colon; D17.5 Benign lipomatous neoplasm of intra-abdominal organs; K63.89 Other specified diseases of intestine; K52.9 Noninfective gastroenteritis and colitis, unspecified; K57.30 Diverticulosis of large intestine without perforation or abscess without bleeding; K21.00 Gastro-esophageal reflux disease with esophagitis, without bleeding; K75.9 Inflammatory liver disease, unspecified; K92.1 Melena; I10 Essential (primary) hypertension; M19.90 Unspecified osteoarthritis, unspecified site; E66.9 Obesity, unspecified; Z68.43 Body mass index [BMI] 50.0-59.9, adult; Z20.822 Contact with and (suspected) exposure to COVID-19; Z79.899 Other long term (current) drug therapy; Z83.79 Family history of other diseases of the digestive system
CPT/HCPCS: 43239; 45380; 45385; 45398; 36415; 80074; 83516; 85049; 85610; 85730; 86038; 86225; 86235; 87426; 88305; 88313; C9803; J7120; J2405

== ENCOUNTER → 2021-07-18 08:53 | Outpatient (CLI) | payer MEDICAID, SELFPAY ==
[2021-07-18] VITALS (7 sets, daily range): BP systolic 107–140; BP diastolic 77–95; PULSE 73–82; RESP 18; TEMP 36.6–37; O2SAT 96–100; BMI 51.3
--- NOTE | 2021-07-18 | LIVB_PTH ---
PATIENT: DERIK BOLIVAR LOC: [place] U#:[id number] AGE/SX: 49/M ROOM: RE07/18/[address]: Dr. Felipe Hayes DO : 1975 BED: DIS: SPEC #: [id number] RECD: 07/18/21 10:27 STATUS: NIKKI BEBE #: [id number] EVER: 07/18/21 00:[address]: Felipe Hayes DEPT: SURGICAL PATHOLOGY RECD BY: Yue Melgoza ENTERED: 07/18/21 13:32 SP TYPE: LIVER BX OTHR DR: Dr. Luther Lamas MD Tissues: Liver, NOS Procedures: PAS with Diastase (control) Trichrome (control) Special Stain Group II PAS Stain (control) Surgery Specimen Level IV Retic (control) Iron Stain (control) HEADER OPERATION: Liver biopsy PRE-OP DIAGNOSIS: Hepatitis TISSUE SUBMITTED: Liver 18-gauge x3 MICROSCOPIC DIAGNOSIS Liver, core biopsy: Focal macrovesicular steatosis. No evidence of cirrhosis. See comment. AM:torsten 07/19/2021 COMMENT Reticulin stains reveals a normal hepatic architecture. Iron stain does not reveal intraparenchymal deposition of iron. PAS stain with and without diastase does not reveal accumulation of abnormal proteins. Trichrome stain does not reveal cirrhosis. All matched controls are appropriate. MICROSCOPIC DESCRIPTION Slides are reviewed. GROSS DESCRIPTION Received is one container labeled with the patient's name and not further designated. The specimen consists of three elongated fragments of carbajal soft tissue measuring 1 to 1.7 cm in length and 0.1 cm in diameter. The entire specimen is submitted in one cassette. / SJ:torsten 07/18/21 TC:5 CPT: 54240, 94441 x5
--- NOTE | 2021-07-18 10:00 | CT_ITS ---
PROCEDURE: CT DIRECTED CORE LIVER BIOPSY INDICATION: Male, 45 years old. Liver Biopsy - hepatitis. PHYSICIAN: Dr. IBARRA CONSENT: Written informed consent was obtained having explained the risks, benefits and alternatives in detail with the patient who accepted the risks and agreed to proceed. Laboratory review and clinical assessment was performed. CONSCIOUS SEDATION PROTOCOL: The Drugs used were: 2 mg Versed, IV., and 50 mcg Fentanyl, IV. The sedation time was: 10 minutes. Conscious sedation was started at 10:10 AM and terminated at 10:20 AM. The conscious sedation protocol was independently monitored. RADIATION DOSAGE (If Supplied By Facility): CTDIvol = ( 23 ) mGy, DLP = ( 1529.71 ) mGycm Individualized dose optimization techniques were used for this CT. TECHNIQUE: Using CT image guidance with image documentation, a suitable location in the left lobe of the liver was identified. Using an anterior approach, puncture of the liver was uneventful with an 18-gauge core needle system. 3, 18-gauge core samples were obtained, and submitted in formalin to the pathologist for further assessment. Followup CT scan revealed no distinct sequelae. CT/Biopsy/Inj or Needle Placement IMPRESSION: 1. CT directed core needle biopsy of the liver, using CT image guidance with image documentation as described. 2. Conscious Sedation protocol utilized with independent monitoring. Electronically Signed: Christopher Ibarra MD at 10:36 EST , Service support ,
[2021-07-18] MEDS: Midazolam 2 MG/2 ML Syringe IV (10:10)
[2021-07-18] MEDS: fentaNYL 100 MCG/2 ML Ampul IV (10:10)
[2021-07-18] MEDS: Lidocaine 2% (20 ml mdv) 20 ML Vial INFILT (10:11)
[2021-07-18 10:21] LABS: Platelet Count 228 K/mm3 (150-450)
[2021-07-18 10:37] LABS: International Normalized Ratio 1.1; Prothrombin Time (Protime)PT. 13.1 SECONDS (11.7-14.9)
== END | disposition home or self-care (01) ==
PROVIDERS: PCP Family Medicine; Referring Provider Internal Medicine Gastroenterology; Visit Provider Internal Medicine Gastroenterology
DX: K75.9 Inflammatory liver disease, unspecified (principal)
CPT/HCPCS: 47000; 36415; 77012; 85049; 85610; 85730; 88305; 88307; 88313; J7040